=== PATIENT | female | born 1985 | race Caucasian/White ===

== ENCOUNTER → 2016-04-11 | Outpatient (CLI) | payer OTHER ==
[~2016-04-11] MED LIST: BENZ100 PO; CEPH500C PO; IBUP-232 PO; NYSTOIN TOP; OXYC1TAB63 PO; PREN0.01 PO; TERC.4%V VAGINAL
[2016-04-11 11:18] LABS: HEMATOCRIT 32.3 % (35.0-46.0); REVIEW FLAG FINAL
[2016-04-13 23:54] LABS: HSV2 IGM IFA NEGATIVE (())
[2016-04-14 10:54] LABS: HSV IGM 1 TITER ND TITER; HSV IGM II TITER ND TITER
== END ==
LOC: CLAB 09:22
PROVIDERS: ATTEND Obstetrics & Gynecology
DX: Z33.1 Pregnant state, incidental (principal); Z34.82 Encounter for supervision of other normal pregnancy, second trimester; Z3A.16 16 weeks gestation of pregnancy
CPT/HCPCS: 36415; 82951; 85014; 85018; 86695; 86696; 86703; 87340

== ENCOUNTER → 2016-04-26 | Outpatient (CLI) | payer OTHER | LOC: CLAB 08:17 | PROVIDERS: ATTEND Obstetrics & Gynecology | DX: O99.810 Abnormal glucose complicating pregnancy (principal) | CPT/HCPCS: 36415; 82951; 82952 ==

== ENCOUNTER → 2016-04-28 | Outpatient (CLI) | payer OTHER ==
[2016-04-28 15:24] LABS: BACTERIA, URINE FEW /hpf; BLOOD, URINE NEG (NEG); GLUCOSE,URINE NEG (NEG); HYALINE CAST, URINE 1 /lpf (RARE); KETONE, URINE 40 mg/dL (NEG); MUCUS URINE FEW /lpf (OCC); NITRITE,URINE NEG (NEG); SQUAMOUS EPITHELIAL CELL URINE 61 /hpf (0-5); URINE COLOR LIGHT-YELLOW (YELLW/STRAW)
== END ==
LOC: CLAB 14:21
PROVIDERS: ATTEND Obstetrics & Gynecology
DX: O23.40 Unspecified infection of urinary tract in pregnancy, unspecified trimester (principal)
CPT/HCPCS: 81001; 87086

== ENCOUNTER 2016-06-30 11:27 | Inpatient (IN) | payer OTHER ==
[2016-06-30] VITALS (19 sets, daily range): BP systolic 93–142; BP diastolic 52–85; PULSE 7–87; RESP 16–20; TEMP 98–98.5; O2SAT 78–100
[~2016-06-30 11:27] MED LIST changes: -IBUP-232 PO; -OXYC1TAB63 PO
[2016-06-30] MEDS ORDERED: LACTATED RINGER'S 1000 ML INJ 1,000 ML IV ONE (12:26)
--- NOTE | 2016-06-30 12:41 | HHI.HP ---
HPI Chief Complaint Complains of a bloody discharge and watery discharge Date Seen: June 30, 2016 Travel History International Travel<30 Days: No Contact w/Intl Traveler<30Days: No Known Affected Area: No History of Present Illness HPI This patient is 31-year-old white female previous at [address] Smith for care. Patient states that last night she and leaking bloody discharge and when she wipes she notices a wet and blood- tinged discharge. Amnisure here today on OB ED is positive she denies min blood or gross ruptured membranes just this bloody discharge. Baby is active heart tracing is reactive and she has only occasional contraction. She is previous for failure to progress and after pushing 2 hours and it discussed possibly ing if she went into labor at this stage she's not really labor she is ruptured and will likely proceed with section Para: 1 : 2 History Obstetric History Obstetric History 1 with first baby for failure to progress after second stage pushing for greater than 2 hours Past Surgical History Narrative Surgical 1 Social History Alcohol Use: No Tobacco Use: No Substance Abuse: No Allergies-Medications (Allergen,Severity, Reaction): Coded Allergies: No Known Allergies (Verified , 12/31/15) Home Meds Active Scripts Benzonatate (Tessalon Perles)100 Mg [id number] Mg PO TID PRN (COUGH) #30 CAP Ref 0 Prov:Tim Goyal MD R3 12/31/15 Nystatin-Triamcinolone (Nystatin/Triamcinolone) Oin1 Applic TOP BID #1 TUBE Ref 1 Prov:Fabiola Seay CNM [employer] 11/18/15 Multivit/Min/Fol Ac/Iron/Pren ( Vit ( Plus)) Tab1 Tab PO DAILY #100 TAB Ref 3 Prov:David Mejia MD 11/01/15 Reported Medications Terconazole Vaginal Cream (Terazol 7 Vaginal Cream)0.4 % Cream1 Appl VAGINAL HS #45 GM Ref 0 1 applicatorful intravaginally x 7 nights 12/31/15 Cephalexin 500 Mg [id number] Mg PO BID Ref 0 12/31/15 Review of Systems General / Constitutional: No: Fever, Weight Gain, Chills, Other Eyes: No: Diploplia, Blurred Vision, Visual changes, Pain, Photophobia HENT: No: Headaches, Vertigo, Lightheadedness Cardiovascular: No: Irregular Rhythm, Chest Pain or Discomfort, Palpitations, Tachycardia, Syncope, Varicosities, Edema, Cyanosis Respiratory: No: Cough, Short of Breath, Other Gastrointestinal: No: Nausea, Vomiting, Diarrhea Genitourinary: No: Decreased Urinary Output, Oliguria Musculoskeletal: No: Limited ROM, Weakness, Cramping, Edema, Pain Skin: No Rash, No Itching, No Dryness, No Lumps, No Change in Pigmentation, No Change in Nails, No Alopecia, No Lesions Neurologic: No: Weakness, Dizziness, Syncope, Focal Abnormalities, Coordination Problem, Headache, Slurred Speech, Seizures Psychiatric: No: Depression, Suicidal Ideations, Homicidal Ideation Endocrine: No: Heat Intolerance, Cold Intolerance, Polydipsia, Polyuria, Other Physical Exam Narrative GENERAL: Well-nourished, well-developed patient. SKIN: Warm and dry. HEAD: Normocephalic and atraumatic. EYES: No scleral icterus. No injection or drainage. ENT: No nasal drainage noted. Mucous membranes pink. Airway patent. NECK: Supple, trachea midline. No JVD. CARDIOVASCULAR: Regular rate and rhythm without murmurs, gallops, or rubs. RESPIRATORY: Breath sounds equal bilaterally. No accessory muscle use. BREASTS: Bilateral exam showed no masses , no retractions, no nipple discharge. ABDOMEN/GI: Abdomen soft, non-tender, bowel sounds present, no rebound, no guarding Gravid to [40-] weeks size Fundal Height: [40-] GENITOURINARY: External Genitalia: intact and normal in appearance BUS glands: [-] Cervix: [-] Dilatation: [1-] Effacement: [20-] Station: [-3] Presentation: [vtx-] Membranes: ruptured] amnio sure positive Uterine Contractions: [Occasional-] FHT's: Category: [1-] Baseline: [-144] Reactive: [yes-] Variability: [mod-] Decels: [none-] EXTREMITIES: No cyanosis or edema. BACK: Nontender without obvious deformity. No CVA tenderness. NEUROLOGICAL: Awake and alert. Motor and sensory grossly within normal limits. Five out of 5 muscle strength in all muscle groups. Normal speech. Data Data Orders Admit To Inpatient (06/30/16 ) Code Status (06/30/16 12:26) Vital Signs (Adult) .ON ADMISSION (06/30/16 12:26) Activity Oob Ad Shalini (06/30/16 12:) Heart (06/30/16 12:) Urinary Catheter Management CATHERINE.Q8H (06/30/16 12:26) ^ Preps (06/30/16 12:) Scd / Luciano / Foot Pump CATHERINE.QSHIFT (06/30/16 12:26) ^ Ultrasound For Locatio (06/30/16 12:26) Diet Npo (06/30/16 Lunch) Lactated Ringer's 1000 Ml Inj (Lr 1000 M (06/30/16 12:26) Lactated Ringer's 1000 Ml Inj (Lr 1000 M (06/30/16 12:56) Cefazolin 2 Gm Premix (Ancef 2 Gm Premix (06/30/16 13:30) Citric Acid-Sodium Citrate Liq (Bicitra (06/30/16 14:00) Type And Screen (06/30/16 12:26) Complete Blood Count With Diff (06/30/16 12:26) Urinalysis - C+S If Indicated (06/30/16 12:26) Inpatient Certification (06/30/16 ) Labs Amnio sure positive Assessment/Plan Assessment and Plan This patient is 31-year-old white female at 39 weeks presents with bloody watery discharge. The amnio sure is positive. Contractions are occasional. She sees Dr. Smith for care and was scheduled for next week. She had been interesting try to deliver vaginally only if she went into labor however she's not in labor she is just is rupture the membranes PLAN C- SECTION FOR DELIVERY Roel Mendoza II, MD June 30, 2016 12:41
[2016-06-30] MEDS ORDERED: LACTATED RINGER'S 1000 ML INJ 1,000 ML IV SCH ×2 (12:56→22:26)
[2016-06-30] MEDS ORDERED: ceFAZolin 2 GM PREMIX 50 ML IV SCH (13:30)
[2016-06-30] MEDS ORDERED: PENICILLIN G POT 5,000,000 UNITS/NS 100 ML(Mini-Bag Plus) IV ONE ×2 (14:00)
[2016-06-30] MEDS ORDERED: CITRIC ACID-SODIUM CITRATE LIQ 30 ML UDC PO SCH (14:00)
[2016-06-30 14:22] LABS: BACTERIA, URINE FEW /hpf; BLOOD, URINE MOD (NEG); COMMENT (UR) CULTURE INDICATED; CULTURE IF INDICATED CULTURE INDICATED; GLUCOSE,URINE NEG (NEG); KETONE, URINE 10 mg/dL (NEG); MUCUS URINE FEW /lpf (OCC); NITRITE,URINE NEG (NEG); SQUAMOUS EPITHELIAL CELL URINE 52 /hpf (0-5); URINE COLOR YELLOW (YELLW/STRAW)
[2016-06-30 14:28] LABS: AUTOMATED NEUTROPHIL # 10.4 TH/MM3 (1.8-7.7); BASOPHIL % 0.2 % (0.0-2.0); EOSINOPHIL % 0.3 % (0.0-4.0); HEMATOCRIT 33.3 % (35.0-46.0); HEMO FLAGS DIFF FINAL; LYMPH % 16.3 % (9.0-44.0); LYMPHOCYTE # 2.2 TH/MM3 (1.0-4.8); MEAN CELL VOLUME 86.2 FL (80.0-100.0); MEAN CORPUSCULAR HGB CONC 33.6 % (32.0-36.0); MONO % 6.1 % (0.0-8.0); NEUT % 77.1 % (16.0-70.0); PLATELET COUNT 153 TH/MM3 (150-450); RED BLOOD COUNT 3.86 MIL/MM3 (4.00-5.30); RED CELL DISTRIBUTION WIDTH 15.4 % (11.6-17.2); WHITE BLOOD COUNT 13.5 TH/MM3 (4.0-11.0)
[2016-06-30] MEDS ORDERED: OXYTOCIN 10 UNIT/ML AMP ONE (16:30)
--- NOTE | 2016-06-30 17:29 | PD.OB.DELI ---
Procedure Note Section Procedure Pre Op Diagnosis term,prior section x1 PROM increased BMI Post Op Diagnosis: Post Op Diagnosis same delivered Performed by Annetta Smith Procedure: Repeat Low Transverse Sec Informed consent obtained: For anesthesia, For procedure Confirmed correct: Patient, Procedure, Site, Time-out taken Anesthesia: Spinal Medication prior to procedure: As documented in eMAR Monitoring during procedure: Blood pressure monitoring, doppler Urinary catheter: Inserted using sterile technique, To dependent drainage, ml urine output Sterile preparation: Duraprep, In usual fashion, With 2% chlorexidine ( Hibiclens) Position: Supine with wedge to right side Operative Features Skin Incision: Pfannenstiel Uterine Incision: Low transverse w/knife / blunt ext Membranes Ruptured: Previously Presentation: Occiput anterior Delivery of : Assisted : Male One Minute : 9 Five Minute : 9 Weight: 7 3 Status of infant: Viable Placenta delivered: Intact Medications: Antibiotics, Oxytocin Procedure tolerated: Well Maternal Condition: Stable Condition: Stable (uterus scarred in place Unable to reach fundus or tubes due to scarring.) Annetta Smith MD June 30, 2016 17:29
[2016-06-30] MEDS ORDERED: ZOLPIDEM TARTRATE 5 MG TAB PO PRN (17:30)
[2016-06-30] MEDS ORDERED: SIMETHICONE 80 MG CHEWABLE TAB PO PRN (17:30)
[2016-06-30] MEDS ORDERED: SODIUM CHLORIDE 0.9% FLUSH 10 ML FLUSH IV FLUSH PRN (17:30)
[2016-06-30] MEDS ORDERED: OXYTOCIN 30 UNITS-500ML PREMIX 500 ML IV ONE (17:30)
[2016-06-30] MEDS ORDERED: oxyCODONE/ACETAMINOPHEN 5 MG/325 MG TAB PO PRN (17:30)
[2016-06-30] MEDS ORDERED: ONDANSETRON HCL 4 MG/2 ML VIAL IV PUSH PRN (17:30)
[2016-06-30] MEDS ORDERED: ACETAMINOPHEN 1000 MG/100 ML VIAL IV ONE ×2 (17:30→19:17)
[2016-06-30] MEDS ORDERED: DICLOFENAC SODIUM 37.5 MG/ML VIAL IV PUSH ONE (17:55)
[2016-06-30] MEDS: DICLOFENAC SODIUM 37.5 MG/ML VIAL IV PUSH SCH (18:00)
[2016-06-30] MEDS ORDERED: MORPHINE SULFATE PF 5 MG/10 ML VIAL ONE (18:35)
[2016-06-30] MEDS ORDERED: ONDANSETRON HCL 4 MG/2 ML VIAL ONE (18:36)
[2016-06-30] MEDS ORDERED: OXYTOCIN 30 UNITS-500ML PREMIX 500 ML ONE (19:17)
[2016-06-30] MEDS ORDERED: EPIDURAL-NALOXONE HCL 0.4 MG/ML AMP IV PRN (20:30)
[2016-06-30] MEDS ORDERED: EPIDURAL-NO SYSTEMIC NARCOTICS PRN (20:30)
[2016-06-30] MEDS ORDERED: EPIDURAL-DO NOT ADMINISTER ANTICOAGULANTS PRN (20:30)
[2016-06-30] MEDS ORDERED: EPIDURAL-DIPHENHYDRAMINE HCL 50 MG/ML VIAL IV PUSH PRN (20:30)
[2016-06-30] MEDS ORDERED: EPIDURAL-DIPHENHYDRAMINE HCL 50 MG CAP PO PRN (20:30)
[2016-06-30] MEDS: SODIUM CHLORIDE 0.9% FLUSH 10 ML FLUSH IV FLUSH SCH (20:59)
[2016-07-01] VITALS: BP 100/45; PULSE 76; RESP 18; TEMP 99.3; O2SAT 96
[2016-07-01] MEDS: DICLOFENAC SODIUM 37.5 MG/ML VIAL IV PUSH SCH ×2 (01:45→09:17)
[2016-07-01] MEDS ORDERED: OXYTOCIN 30 UNITS-500ML PREMIX 500 ML IV PRN (03:30)
[2016-07-01] MEDS: oxyCODONE/ACETAMINOPHEN 5 MG/325 MG TAB PO PRN ×4 (03:44→22:13)
[2016-07-01 04:00] VITALS: BP 98/51; PULSE 74; RESP 18; TEMP 97.9
[2016-07-01 06:07] LABS: AUTOMATED NEUTROPHIL # 8.7 TH/MM3 (1.8-7.7); BASOPHIL % 0.3 % (0.0-2.0); EOSINOPHIL % 0.3 % (0.0-4.0); HEMATOCRIT 28.5 % (35.0-46.0); HEMO FLAGS DIFF FINAL; LYMPH % 16.2 % (9.0-44.0); LYMPHOCYTE # 1.8 TH/MM3 (1.0-4.8); MEAN CELL VOLUME 87.9 FL (80.0-100.0); MEAN CORPUSCULAR HEMOGLOBIN 28.8 PG (27.0-34.0); MEAN CORPUSCULAR HGB CONC 32.8 % (32.0-36.0); MONO % 5.9 % (0.0-8.0); NEUT % 77.3 % (16.0-70.0); PLATELET COUNT 107 TH/MM3 (150-450); RED BLOOD COUNT 3.24 MIL/MM3 (4.00-5.30); RED CELL DISTRIBUTION WIDTH 15.4 % (11.6-17.2); WHITE BLOOD COUNT 11.3 TH/MM3 (4.0-11.0)
[2016-07-01 08:00] VITALS: BP 98/53; PULSE 75; RESP 18; TEMP 98.7; O2SAT 98
--- NOTE | 2016-07-01 08:24 | HHI.OB ---
Subjective Post Operative Day: 1 Remarks Doing well Pain is well controlled Baby is good Objective Vitals/I&O Vital Signs Date Time Temp Pulse Resp B/P Pulse Ox O2 Delivery O2 Flow Rate FiO2 07/01/16 04:00 97.9 07/01/16 04:00 74 18 98/51 07/01/16 00:00 99.3 76 18 100/45 96 06/30/16 20:15 98.5 71 18 102/60 100 06/30/16 19:48 77 06/30/16 19:48 7 16 112/53 98 06/30/16 19:43 98.0 06/30/16 19:34 16 06/30/16 19:34 18 98 06/30/16 19:33 75 109/52 06/30/16 19:17 103/53 06/30/16 19:15 79 98 06/30/16 19:14 18 06/30/16 19:02 121/60 06/30/16 18:58 78 16 78 06/30/16 18:58 18 06/30/16 18:58 97 06/30/16 18:49 129/58 06/30/16 18:46 80 97/60 06/30/16 18:46 98.4 16 98 06/30/16 16:34 98.0 06/30/16 16:01 80 118/67 06/30/16 15:46 78 111/59 06/30/16 15:25 20 06/30/16 15:19 87 93/57 06/30/16 14:29 20 06/30/16 14:29 83 142/85 06/30/16 14:28 98.1 Result Diagram: 07/01/16 0547 Objective Remarks GENERAL: Well-nourished, well-developed patient. CARDIOVASCULAR: Regular rate and rhythm without murmurs, gallops, or rubs. RESPIRATORY: Breath sounds equal bilaterally. No accessory muscle use. ABDOMEN/GI: Abdomen soft, non-tender, bowel sounds present. Incision: Clean, dry and intact. Fundus: Firm, non-tender at umbilicus. GENITOURINARY: Light to moderate bleeding. EXTREMITIES: No cyanosis or edema, non-tender, without signs of DVT. Medications and IVs Current Medications Medications (Trade) Dose Ordered Sig/Rudy Route Start Time Stop Time Status Last Admin Lactated Ringer's 1,000 ml @ 150 mls/hr Q6H40M IV 06/30/16 12:56 06/30/16 16:23 (Lr 1000 ml Inj) 1,000 ml @ 100 mls/hr Q10H IV 06/30/16 22:26 07/01/16 18:25 06/30/16 01:45 (NS Flush) 2 ml BID IV FLUSH 06/30/16 21:00 (NS Flush) 2 ml UNSCH PRN IV FLUSH 06/30/16 17:30 (Mylicon Chew) 80 mg QID PRN PO 06/30/16 17:30 (Motrin) 600 mg Q6H PRN PO 06/30/16 17:30 (Percocet 5-325 Mg) 1 tab Q4H PRN PO 06/30/16 17:30 07/01/16 03:44 (Percocet 5-325 Mg) 2 tab Q4H PRN PO 06/30/16 17:30 (Nasima-Colace) 2 tab Q12H PRN PO 06/30/16 17:30 (Ambien) 5 mg HS PRN PO 06/30/16 17:30 (M-M-R Ii Inj) 0.5 ml ONCE ONCE SQ 07/01/16 16:00 07/01/16 16:01 (Boostrix Inj) 0.5 ml ONCE ONCE IM 07/01/16 16:00 07/01/16 16:01 (Zofran Inj) 4 mg Q6H PRN IV PUSH 06/30/16 17:30 Miscellaneous Information NO SYSTEMIC NARCOTICS TO BE GIVEN FO... UNSCH PRN .XX 06/30/16 20:30 07/01/16 20:29 (Narcan Inj) 0.4 mg UNSCH PRN IV 06/30/16 20:30 07/01/16 20:29 (Benadryl Inj) 25 mg Q6H PRN IV PUSH 06/30/16 20:30 07/01/16 20:29 (Benadryl) 50 mg Q6H PRN PO 06/30/16 20:30 07/01/16 20:29 Miscellaneous Information ALL NURSING DEPARTMENTS UNSCH PRN .XX 06/30/16 20:30 07/01/16 20:29 (Dyloject Inj) 37.5 mg Q8H IV PUSH 06/30/16 18:00 07/01/16 10:01 07/01/16 01:45 Assessment/Plan Assessment and Plan POD #1 Mild anemia will start Fe after she is done with percocet. Doing well routine care Trent Martinez MD July 01, 2016 08:24
[2016-07-01] MEDS ORDERED: IBUP-232 PO (08:29)
[2016-07-01] MEDS ORDERED: OXYC1TAB63 PO (08:29)
[2016-07-01 09:00] VITALS: BP 98/53; PULSE 75; RESP 18; TEMP 98.2
--- NOTE | 2016-07-01 10:14 | HHI.DCPOC ---
Discharge Care Plan Diagnosis: (1) S/P repeat low transverse Your Health Problems Are: delivery Report Symptoms to Your Doctor -Temperate above 100.5 degrees -Redness, of incision or excessive or foul smelling drainage -Unusual pain or calf pain -Increased vaginal bleeding -Painful or difficulty urinating -Feelings of extreme sadness or anxiety after 2 weeks Goals to Promote Your Health * To prevent worsening of your condition and complications * To maintain your health at the optimal level Directions to Meet Your Goals Take your medications as prescribed Follow your dietary instruction Follow activity as directed Ensure plenty of rest for recovery Drink fluids for hydration Keep your appointments as scheduled Take your immunizations and boosters as scheduled If your symptoms worsen call your PCP, if no PCP go to Urgent Care Center or Emergency Room Smoking is Dangerous to Your Health. Avoid second hand smoke Call the 24-hour crisis hotline for domestic abuse at Lilli Franks July 01, 2016 10:14
[2016-07-01 11:46] VITALS: BP 103/54; PULSE 75; TEMP 98.7
--- NOTE | 2016-07-01 11:59 | MH ---
cc: TEAGAN YEUNG DATE OF ADMISSION 06/30/2016 DATE OF 89 DATE OF PROCEDURE July 05, 2016 PROCEDURE The procedure is going to be scheduled repeat section at 40 weeks. HISTORY OF THE PRESENT CONDITION The patient is a pleasant, , white female 2, para 1, currently at 39-1/7 weeks with an unfavorable cervix. She stated the baby had not been moving well today and she lost her mucus plug. She has had no labor, gestational diabetes or hypertensive disease. Her general health is good. PAST MEDICAL HISTORY She has no chronic or systemic illnesses. SOCIAL HISTORY She does not smoke, drink or use illicit drugs. ALLERGIES She has no allergies. surveillance in the third trimester has been reassuring. She does have Group B strep. She did pass her three hour glucose tolerance test. Her hemoglobin was 11.1. Her urine culture was negative. HIV was negative. Hep B was negative. RPR was negative. is cephalic. Estimated weight 8 pounds. Pelvis is clinically adequate. She is 2 cm, 50%, but posterior. She has lots of fluids. Her JAIME is adequate and she was not feeling the baby move well today so biophysical was done which showed 6/8 with 2 off for breathing. PHYSICAL EXAMINATION VITAL SIGNS: Her weight is 270. She is normotensive. NECK: She has no thyroid enlargement. LUNGS: Are clear. HEART: Rate and rhythm are regular. ABDOMEN: Fundus is term. PELVIC: Cervix is as mentioned. EXTREMITIES: Unremarkable. IMPRESSION Term intrauterine with prior section who got all way to the second stage and pushed 2 hours. She is not an ideal candidate for a trial of labor, and I think this baby is bigger. We are planning a repeat on the on Monday unless she goes into active labor before that. Teagan Yeung MD PPC/DOLLY /3:22 PM /11:45 AM
[2016-07-01] MEDS: DOCUSATE SODIUM 50 MG/SENNA 8.6 MG TAB PO PRN (12:26)
[2016-07-01] MEDS ORDERED: DIPHTH/TETANUS/ACEL PERTUSSIS (BOOSTER) 0.5 ML VIAL/PFS IM ONE (16:00)
[2016-07-01] MEDS ORDERED: MEASLES, MUMPS, RUBELLA VACCINE 0.5 ML VIAL SQ ONE (16:00)
[2016-07-01] MEDS: IBUPROFEN 600 MG TAB PO PRN (17:55)
[2016-07-01 20:45] VITALS: BP 115/55; PULSE 80; RESP 18; TEMP 99
[2016-07-01] MEDS: SODIUM CHLORIDE 0.9% FLUSH 10 ML FLUSH IV FLUSH SCH (21:00)
[2016-07-02] MEDS: IBUPROFEN 600 MG TAB PO PRN ×4 (01:49→21:40)
[2016-07-02] MEDS: oxyCODONE/ACETAMINOPHEN 5 MG/325 MG TAB PO PRN ×5 (01:49→21:41)
[2016-07-02] MEDS: DOCUSATE SODIUM 50 MG/SENNA 8.6 MG TAB PO PRN ×2 (01:50→14:42)
[2016-07-02 07:30] VITALS: BP 95/50; PULSE 75; RESP 16; TEMP 98.3
--- NOTE | 2016-07-02 11:54 | HHI.OB ---
Subjective Post Operative Day: 2 Remarks Doing well, Baby is good Pain is well controlled. Objective Vitals/I&O Vital Signs Date Time Temp Pulse Resp B/P Pulse Ox O2 Delivery O2 Flow Rate FiO2 07/02/16 07:30 98.3 75 16 95/50 07/01/16 20:45 80 18 115/55 07/01/16 20:45 99.0 Result Diagram: 07/01/16 0547 Objective Remarks GENERAL: Well-nourished, well-developed patient. CARDIOVASCULAR: Regular rate and rhythm without murmurs, gallops, or rubs. RESPIRATORY: Breath sounds equal bilaterally. No accessory muscle use. ABDOMEN/GI: Abdomen soft, non-tender, bowel sounds present. Incision: Clean, dry and intact. Fundus: Firm, non-tender at umbilicus. GENITOURINARY: Light to moderate bleeding. EXTREMITIES: No cyanosis or edema, non-tender, without signs of DVT. Medications and IVs Current Medications Medications (Trade) Dose Ordered Sig/Rudy Route Start Time Stop Time Status Last Admin (Lr 1000 ml Inj) 1,000 ml @ 150 mls/hr Q6H40M IV 06/30/16 12:56 06/30/16 16:23 (NS Flush) 2 ml BID IV FLUSH 06/30/16 21:00 (NS Flush) 2 ml UNSCH PRN IV FLUSH 06/30/16 17:30 (Mylicon Chew) 80 mg QID PRN PO 06/30/16 17:30 (Motrin) 600 mg Q6H PRN PO 06/30/16 17:30 07/02/16 08:00 (Percocet 5-325 Mg) 1 tab Q4H PRN PO 06/30/16 17:30 07/02/16 10:03 (Percocet 5-325 Mg) 2 tab Q4H PRN PO 06/30/16 17:30 (Nasima-Colace) 2 tab Q12H PRN PO 06/30/16 17:30 07/02/16 01:50 (Ambien) 5 mg HS PRN PO 06/30/16 17:30 (Zofran Inj) 4 mg Q6H PRN IV PUSH 06/30/16 17:30 Assessment/Plan Assessment and Plan POD #2 Mild anemia will start Fe after she is done with percocet. Thrombocytopenia will re check plts. Doing well routine care Trent Martinez MD July 02, 2016 11:54
[2016-07-02 12:47] LABS: HEMATOCRIT 27.4 % (35.0-46.0); MEAN CORPUSCULAR HEMOGLOBIN 29.9 PG (27.0-34.0); MEAN CORPUSCULAR HGB CONC 34.3 % (32.0-36.0); PLATELET COUNT 117 TH/MM3 (150-450); RED BLOOD COUNT 3.15 MIL/MM3 (4.00-5.30); RED CELL DISTRIBUTION WIDTH 15.7 % (11.6-17.2); REVIEW FLAG FINAL; WHITE BLOOD COUNT 10.6 TH/MM3 (4.0-11.0)
[2016-07-02 19:00] VITALS: BP 114/57; PULSE 84; RESP 16; TEMP 98.6
[2016-07-03] MEDS: oxyCODONE/ACETAMINOPHEN 5 MG/325 MG TAB PO PRN ×3 (03:17→15:12)
[2016-07-03] MEDS: IBUPROFEN 600 MG TAB PO PRN ×3 (03:17→15:11)
[2016-07-03 09:17] VITALS: PULSE 76; RESP 16; TEMP 98.1
[2016-07-03 09:27] VITALS: BP 115/65
--- NOTE | 2016-07-05 18:29 | MP ---
cc: TEAGAN YEUNG DATE OF SURGERY 06/30/16 PREOPERATIVE DIAGNOSIS Term, prior section x1, prom, increased BMI. POSTOPERATIVE DIAGNOSIS Term, prior section x1, prom, increased BMI. Nulliparous PROCEDURE Repeat low transverse segment section. ANESTHESIA Spinal with Duramorph SURGEON Chely Yeung MD PACKAGE CHECKER Alec Sena. FINDINGS A living female was delivered from [place] with clear fluid and no nuchal cord. Placenta was delivered intact with a three-vessel cord. Estimated blood loss was average. Apgars were 8 and 9 and weight approximately 7 pounds 3 ounces. PROCEDURE IN DETAIL The patient was taken to the operating room. She was given a spinal with Duramorph. She was prepped and draped in the dorsal lithotomy position with weight off the vena cava. She had sequential stockings on. A Talamantes catheter had been placed and she had received Ancef 2 grams within an hour of cutting. After assuring adequate analgesia and a time-out being performed, a Pfannenstiel incision was made through her previous Pfannenstiel and taken down to the rectus fascia. The rectus fascia was incised and this was taken down to the rectus muscle. The rectus muscle and the parietal peritoneum was entered sharply and a bladder flap was created off the lower uterine segment. The uterus was scarred in place and you could not reach the tubes or exteriorize the uterus. An incision was made into the uterus and extended vertically in a blunt fashion and the infant was delivered with the findings as noted above. The cord was clamped x2 and cut after 45 seconds and then the placenta was delivered manually intact with a three-vessel cord. The uterus was closed in vivo with first a running interlocking suture and second horizontal imbricating suture. The area was copiously irrigated and no bleeding was noted. Then the rectus muscle and peritoneum were approximated to prevent a rectus diastasis. The fascia was closed with one Vicryl in a non-interlocking fashion. The subcutaneous layer was closed with 3-0 plain and the skin was closed with 4-0 Vicryl on the Kelvin needle. Estimated blood loss was average. Sponge, instrument and needle count were correct. She tolerated the procedure well and went to the recovery room in stable condition. MD JUANITA Flores/ /3:26 PM /6:21 PM MTDD
== END 2016-07-03 17:35 | disposition home or self-care (01) | DRG 765 ==
LOC: HOBED 11:27 → H2EB 12:51 → H1EA 20:04
PROVIDERS: ADMIT Obstetrics & Gynecology; ATTEND Obstetrics & Gynecology
PROC: 10D00Z1 Extraction of Products of Conception, Low, Open Approach (ICD-10-PCS; principal; 2016-06-30)
DX: O42.92 Full-term premature rupture of membranes, unspecified as to length of time between rupture and onset of labor (principal); Z68.41 Body mass index [BMI] 40.0-44.9, adult; D69.6 Thrombocytopenia, unspecified; O99.214 Obesity complicating childbirth; E66.01 Morbid (severe) obesity due to excess calories; O34.211 Maternal care for low transverse scar from previous cesarean delivery; O99.02 Anemia complicating childbirth; O99.824 Streptococcus B carrier state complicating childbirth; Z3A.39 39 weeks gestation of pregnancy; Z37.0 Single live birth
CPT/HCPCS: 81001; 85025; 85027; 86403; 86850; 86900; 86901; 87086; 99285; J0131; J0690; J1130; J2274; J2405; J2540; J2590; J7120

== ENCOUNTER → 2016-08-10 | Outpatient (CLI) | payer OTHER ==
[~2016-08-10] MED LIST changes: -BENZ100 PO; -CEPH500C PO; +IBUP-232 PO; -NYSTOIN TOP; +OXYC1TAB63 PO; -TERC.4%V VAGINAL
[2016-08-10 11:20] LABS: AUTOMATED NEUTROPHIL # 4.7 TH/MM3 (1.8-7.7); BASOPHIL % 0.4 % (0.0-2.0); EOSINOPHIL # 0.1 TH/MM3 (0-0.4); EOSINOPHIL % 1.9 % (0.0-4.0); HEMATOCRIT 35.2 % (35.0-46.0); HEMO FLAGS DIFF FINAL; LYMPH % 31.3 % (9.0-44.0); LYMPHOCYTE # 2.5 TH/MM3 (1.0-4.8); MEAN CELL VOLUME 86.5 FL (80.0-100.0); MEAN CORPUSCULAR HEMOGLOBIN 29.1 PG (27.0-34.0); MEAN CORPUSCULAR HGB CONC 33.6 % (32.0-36.0); MONO % 7.1 % (0.0-8.0); NEUT % 59.3 % (16.0-70.0); PLATELET COUNT 196 TH/MM3 (150-450); RED BLOOD COUNT 4.07 MIL/MM3 (4.00-5.30); WHITE BLOOD COUNT 7.8 TH/MM3 (4.0-11.0)
[2016-08-10 11:37] LABS: BACTERIA, URINE FEW /hpf; BLOOD, URINE LARGE (NEG); GLUCOSE,URINE NEG (NEG); KETONE, URINE NEG (NEG); MUCUS URINE FEW /lpf (OCC); NITRITE,URINE NEG (NEG); SQUAMOUS EPITHELIAL CELL URINE 7 /hpf (0-5); URINE COLOR YELLOW (YELLW/STRAW)
[2016-08-10 11:40] LABS: RHEUMATOID FACTOR TRIGGER LESS THAN 10.0 IU/ML (0.0-14.9)
[2016-08-10 11:49] LABS: FERRITIN 37 NG/ML (8-252); FREE T4 1.12 NG/DL (0.76-1.46)
[2016-08-10 12:02] LABS: WESTERGREN SEDIMENTATION RATE 47 mm/hr (0-20)
[2016-08-10 17:18] LABS: HEMOGLOBIN A1b 0.8 %; HEMOGLOBIN Ao 86.4 %; HEMOGLOBIN LA1C 1.7 %; HEMOGLOBIN P3 3.5 %
[2016-08-12 03:52] LABS: THROMBIN TIME FOR LA ND sec (13-19)
[2016-08-12 15:46] LABS: ANA SCREEN POS (NEG)
== END ==
LOC: CLAB 10:31
PROVIDERS: ATTEND Obstetrics & Gynecology
DX: E03.9 Hypothyroidism, unspecified (principal); N39.0 Urinary tract infection, site not specified; B96.20 Unspecified Escherichia coli [E. coli] as the cause of diseases classified elsewhere; Z13.0 Encounter for screening for diseases of the blood and blood-forming organs and certain disorders involving the immune mechanism
CPT/HCPCS: 36415; 81001; 82728; 83036; 84439; 84443; 85025; 85613; 85652; 85730; 86038; 86039; 86430; 87077; 87086; 87186

== ENCOUNTER → 2016-09-02 | Outpatient (CLI) | payer OTHER ==
[2016-09-02 15:51] LABS: BLOOD, URINE NEG (NEG); GLUCOSE,URINE NEG (NEG); KETONE, URINE NEG (NEG); MUCUS URINE FEW /lpf (OCC); NITRITE,URINE NEG (NEG); SQUAMOUS EPITHELIAL CELL URINE 50 /hpf (0-5)
[2016-09-02 15:52] LABS: URINE COLOR LIGHT-GREEN (YELLW/STRAW)
== END ==
LOC: CLAB 15:28
PROVIDERS: ATTEND Obstetrics & Gynecology
DX: N39.0 Urinary tract infection, site not specified (principal)
CPT/HCPCS: 81001; 87086